=== PATIENT | female | born 1980 | race Hispanic/Latino ===

== ENCOUNTER 2017-03-28 01:01 | Inpatient (IN) | payer MEDICAID ==
[~2017-03-28] VITALS: Ht 170.2 cm; Wt 88.5 kg
[2017-03-28] MEDS ORDERED: Oxytocin 10 Unit/mL Inj IM PRN ×2 (01:15→16:25)
[2017-03-28] MEDS ORDERED: Oxytocin 30 Units/500 mL LR 30 UNITS in IV Premix 1 EACH IV PRN ×3 (01:15→16:25)
[2017-03-28] MEDS ORDERED: Sodium Chloride LOK Flush 10 mL Syringe IVFLUSH PRN (01:15)
[2017-03-28] MEDS ORDERED: Hemorrhage Kit, Post Partum XX ONE ×2 (01:15→16:25)
[2017-03-28] MEDS ORDERED: Methylergonovine 0.2 mg/mL Inj IM PRN ×2 (01:15→16:25)
[2017-03-28] MEDS ORDERED: Carboprost 250 mCg/mL Inj IM PRN ×2 (01:15→16:25)
[2017-03-28] MEDS ORDERED: fentaNYL-PF 50 mCg/mL 2 mL Inj IVPUSH PRN (01:15)
[2017-03-28 01:46] LABS: Mean Corpuscular Volume 90.5 fL (81-100)
[2017-03-28] MEDS: Lactated Ringer's 1,000 ML IV PRN ×2 (02:32→03:24)
--- NOTE | 2017-03-28 03:02 | PCM.HPOB ---
Subjective Date of Service: Mar 28, 2017 Referring Provider: Admitting Physician: Pavel Jefferson MD Primary Care Physician: Nopcp Attending Physician: Pavel Jefferson MD Chief Complaint Leakage fluid History of Present History of Present Illness 36 y/o -0-1-2 at 37 weeks 3 days gestation who presented to the [facility] with complaints of leakage of fluid. She was found to be grossly ruptured @01:20 and her cervix was 1.5cm/60/-2. Her is complicated by AMA, but normal cfDNA. She desires sterilization and has signed BTL paperwork. She is GBS negative. Obstetrical Complications: Other (AMA) Past Medical History Obstetrical History: x 2 Gynecologic History: None Medical History: None Surgical History: None Hx Tobacco Use: No Hx Alcohol Use: No Hx Substance Use: No Past Family History Living Arrangement: with Family Genetic Screening/Counseling Genetic Screening/Counseling: Negative Baby father-had child w defect: No Allergy Coded Allergies: No Known Allergies (Verified , 08/08/04) Exam Constitutional: Well-developed, Well-nourished Abdomen: Gravid Neurological/Psychiatric: Alert, Oriented X3, Cooperative, No Acute Distress Neuro: Grossly Neurologically Intact Additional Information cvx: 1.5cm/60/-2 soft Labs/Diagnostics Lab/Diagnostic Information Laboratory Tests 72 Hours Test 03/28/17 01:30 White Blood Count 8.5th/mm3 (3.8-10.1) Red Blood Count 4.23mil/mm3 (3.90-5.20) Hemoglobin 12.7g/dL (12.0-15.6) Hematocrit 38.3% (35.0-46.0) Mean Corpuscular Volume 90.5fL (81-100) Mean Corpuscular Hemoglobin 30.0pg (27.0-35.0) Mean Corpuscular Hemoglobin Concent 33.2% (32.0-37.0) Red Cell Distribution Width 13.3% (12.3-15.4) Platelet Count 287bil/L (150-400) Maternal Blood Type: A (Positive) Hx Rho(D) Immune Globulin: No Group B Strep Results: Negative Previous Infant with GBS: No Rubella: Immune Lab History: Positive for: Hx Chicken Pox OB Intrapartum Assessment/Plan Problems: (1) 37 weeks gestation of Status: Acute ICD Code: Z3A.37 (2) SROM (spontaneous rupture of membranes) Plan: Plan to admit for early labor and SROM. Will expectantly manage at this time. If contractions space and she does not make any cervical exchange teller the next 3 hours will plan to start pitocin. Status: Acute ICD Code: [id number] (3) AMA (advanced maternal age) multigravida 35+ Status: Acute ICD Code: O09.529 Pavel Jefferson MD Mar 28, 2017 03:02
[2017-03-28] MEDS ORDERED: PREN-105 PO (04:24)
[2017-03-28] MEDS: Lactated Ringer's 1,000 ML IV SCH (16:22)
[2017-03-28] MEDS ORDERED: Benzocaine (Dermoplast) 20% 60 Gm Spray TOPICAL PRN (16:25)
[2017-03-28] MEDS ORDERED: oxyCODONE-Acetamin 5-325 mg Tablet PO PRN (16:25)
[2017-03-28] MEDS ORDERED: Witch Hazel-Glycerin Pads TOPICAL PRN (16:25)
[2017-03-28] MEDS ORDERED: LANOlin HPA 7 Gm Ointment TOPICAL PRN (16:25)
--- NOTE | 2017-03-28 16:51 | OP ---
[address] [address] OPERATIVE REPORT PATIENT: PAULINE PARIKH : 1980 MR#: [id number] ADMIT: 03/28/2017 JOB ID: [id number] DATE OF SURGERY: 03/28/2017 (DELIVERY) SURGEON: PREOPERATIVE DIAGNOSIS(ES): POSTOPERATIVE DIAGNOSIS(ES): DELIVERY SUMMARY: The patient is a 36-year-old, 4, para 3 now, who presented to Labor and Delivery at 37 weeks and 3 days early in the morning of March 28, 2017, with complaint of leakage of fluid. Rupture of membranes was documented and proven with AmniSure testing. At 1:20 a.m., her cervix was 1.5 cm, 60% effaced, -2 station. She was admitted for delivery. Patient is GBS negative. She signed the paper for bilateral tubal ligation. heart rate tracing was reactive, category 1, baseline 140 beats per minute. When she was re-examined at 6:00 in the morning, the cervix was 3 cm dilated, 50% effaced, -2 station. The patient was allowed to labor down. Was rechecked again at around 12 p.m. The cervix was unchanged so augmentation with Pitocin was started and she progressed to full dilation at 3:41 p.m. The patient started pushing at the same time. At 4:12 p.m. she underwent spontaneous vaginal delivery. Delivered a female with weight unknown at the time of the dictation, scores 8 at one minute and 9 at five minutes. Placenta was delivered at 4:17 p.m. Was examined, found to be intact with three-vessel cord. The patient had small midline, 1 cm in size, first-degree laceration that was repaired with one [id number] chromic suture. ESTIMATED BLOOD LOSS: 100 mL. Pitocin was started shortly after delivery of the . Delayed cord clamping was provided for 60 seconds. The fundus was firm after delivery of the placenta. Sponges and instrument count was correct x2.
[2017-03-28] MEDS ORDERED: Ascorbic Acid 500 mg Tablet PO SCH (17:30)
[2017-03-29] MEDS: Lactated Ringer's 1,000 ML IV SCH (00:22)
[2017-03-29 06:37] LABS: Mean Corpuscular Hemoglobin 30.1 pg (27.0-35.0); Mean Corpuscular Volume 91.3 fL (81-100)
--- NOTE | 2017-03-29 10:00 | PCM.DIMED ---
Discharge Instructions Date of Service Mar 29, 2017 Dates of Hospitalization Mar 28, 2017 at 01:12 Diet Discharge Diet: No restrictions Activity Discharge Activity: No restrictions Call your provider Call your provider for: Fever or Chills, Shortness of breath, Bleeding, Chest pain, Vomitting, Excessive diarrhea, Weakness (unilateral) Patient Instructions Follow-up with PCP in: 6 weeks Gavino Yates MD Mar 29, 2017 10:00
[2017-03-29] MEDS ORDERED: IBUP800T28 PO (10:02)
[2017-03-29] MEDS ORDERED: DOCU-41 PO (10:02)
[2017-03-29] MEDS ORDERED: FERR-74 PO (10:02)
[2017-03-29] MEDS ORDERED: OXYC1TAB24 PO (10:02)
[2017-03-29 13:05] VITALS: BP 110/52; PULSE 65
--- NOTE | 2017-03-29 13:31 | DIS ---
[address] [address] DISCHARGE SUMMARY PATIENT: PAULINE PARIKH : 1980 MR#: [id number] ADMIT: 03/28/2017 JOB ID: [id number] DIS: DATE OF ADMISSION: 03/28/2017 DATE OF DISCHARGE: 03/29/2017 ADMITTING DIAGNOSIS: A 36-year-old, 4, para 3, at 37 weeks and 3 days, spontaneous rupture of membranes, active labor. DISCHARGE DIAGNOSIS: A 36-year-old, 4, para 4, spontaneous vaginal delivery at term. The patient is a 36-year-old, 4, para 4 now, who was admitted to Labor and Delivery on March 28, 2017, with spontaneous rupture of membranes and contractions every 3-4 minutes. The patient came early in the morning, was examined, and was 1.5 cm dilated, 60% effaced, -2 station on the cervical check. GBS negative. The patient was re-examined at 6:00 in the morning and progressed spontaneously to 6 cm, 50% effacement, and -2 station. She needed some oxytocin for augmentation of labor subsequently and underwent spontaneous vaginal delivery on March 28, 2017, at 4:12 p.m. The patient declined an epidural. She initially signed the consent for tubal ligation but on day one, March 28, 2017, she has changed her mind. The patient was ambulating, breast-feeding, tolerating regular food. She was afebrile. Vital signs were stable. On exam, the fundus was firm. Perineum intact. There was no vaginal bleeding or abnormal vaginal discharge. Postoperative labs showed WBC count of 9.2, hemoglobin 12.3, hematocrit 37.6, almost no change from the delivery labs. The patient was discharged home on March 29, 2017, in stable condition with all discharge criteria met. She received discharge medications includin. Motrin 800 mg p.o. t.i.d. p.r.n. 2. Percocet 5/325 mg p.o. q.i.d. p.r.n. for breakthrough pain. 3. Colace 100 mg p.o. b.i.d. 4. Ferrous sulfate 325 mg p.o. b.i.d. Followup visit in OB clinic is scheduled in six weeks.
== END 2017-03-29 18:47 | disposition home or self-care (01) | DRG 775 ==
LOC: FBCO 01:01 → FBC 01:12
PROVIDERS: ADMIT Obstetrics & Gynecology; ATTEND Obstetrics & Gynecology
PROC: 10E0XZZ Delivery of Products of Conception, External Approach (ICD-10-PCS; principal; 2017-03-28)
PROC: 0HQ9XZZ Repair Perineum Skin, External Approach (ICD-10-PCS; 2017-03-28)
DX: O70.0 First degree perineal laceration during delivery (principal); O09.523 Supervision of elderly multigravida, third trimester; Z3A.37 37 weeks gestation of pregnancy; Z37.0 Single live birth